=== PATIENT | female | born 1985 | race Caucasian/White ===

== ENCOUNTER → 2016-12-14 | Outpatient (REF) | payer OTHER ==
[~2016-12-14] MED LIST: MOTR200T44 PO; PERCOCET PO
[2016-12-14 12:47] LABS: ALBUMIN 3.7 GM/DL (3.2-5.2); ALBUMIN/GLOBULIN RATIO 1.06 (1.00-1.93); ALKALINE PHOSPHATASE 71 U/L (45-117); ALT/SGPT 16 U/L (12-78); ANION GAP 10 MEQ/L (8-16); AST/SGOT 8 U/L (15-37); BILIRUBIN,TOTAL 0.4 MG/DL (0.2-1.0); BLOOD UREA NITROGEN 10 MG/DL (7-18); CALCIUM LEVEL 8.9 MG/DL (8.5-10.1); CARBON DIOXIDE LEVEL 24 MEQ/L (21-32); CHLORIDE LEVEL 106 MEQ/L (98-107); CHOLESTEROL LEVEL 195 MG/DL (<200); CREATININE FOR GFR 0.78 MG/DL (0.55-1.02); GLOMERULAR FILTRATION RATE > 60.0 (>60); GLUCOSE, FASTING 122 MG/DL (70-105); POTASSIUM SERUM 4.2 MEQ/L (3.5-5.1); SODIUM LEVEL 140 MEQ/L (136-145); TOTAL PROTEIN 7.2 GM/DL (6.4-8.2); TRIGLYCERIDES LEVEL 136 MG/DL (<150)
== END ==
LOC: M LABDRWAD 12:12
PROVIDERS: ATTEND Nurse Practitioner Family
DX: E78.4 Other hyperlipidemia (principal); E55.9 Vitamin D deficiency, unspecified; E11.9 Type 2 diabetes mellitus without complications

== ENCOUNTER → 2018-03-27 | Outpatient (REF) | payer OTHER ==
[2018-03-27 13:13] LABS: BASO % 0.6 % (0.0-1.0); EOS # 0.1 10^3/uL (0.0-0.50); EOS % 1.1 % (0.0-3.0); HEMATOCRIT 38.7 % (36.0-47.0); HEMOGLOBIN 12.5 g/dl (12.0-15.5); IMMATURE GRANULOCYTE % 0.3 % (0-3.0); LYMPH # 1.7 10^3/uL (1.5-4.5); LYMPH % 27.9 % (24.0-44.0); MEAN CORPUSCULAR HEMOGLOBIN 28.7 pg (27.0-33.0); MEAN CORPUSCULAR HGB CONC 32.3 g/dl (32.0-36.5); MONO # 0.6 10^3/uL (0.0-0.8); NEUTROPHILS # 3.8 10^3/uL (1.8-7.7); NEUTROPHILS % 61.1 % (36.0-66.0); PLATELET COUNT, AUTOMATED 351 10^3/uL (150-450); RED BLOOD COUNT 4.35 10^6/uL (4.00-5.40); RED CELL DISTRIBUTION WIDTH 12.7 % (11.5-14.5); WHITE BLOOD COUNT 6.2 10^3/uL (4.0-10.0)
[2018-03-27 13:33] LABS: ALBUMIN 3.9 GM/DL (3.2-5.2); ALBUMIN/GLOBULIN RATIO 1.18 (1.00-1.93); ALKALINE PHOSPHATASE 74 U/L (45-117); ALT/SGPT 15 U/L (12-78); ANION GAP 9 MEQ/L (8-16); AST/SGOT 11 U/L (7-37); BILIRUBIN,TOTAL 0.3 MG/DL (0.2-1.0); BLOOD UREA NITROGEN 10 MG/DL (7-18); CALCIUM LEVEL 8.9 MG/DL (8.5-10.1); CARBON DIOXIDE LEVEL 23 MEQ/L (21-32); CHLORIDE LEVEL 107 MEQ/L (98-107); CHOLESTEROL LEVEL 202 MG/DL (<200); CREATININE FOR GFR 0.69 MG/DL (0.55-1.30); GLOMERULAR FILTRATION RATE > 60.0 (>60); GLUCOSE, FASTING 125 MG/DL (70-100); HDL CHOLESTEROL 54 MG/DL (>40); NON-HDL-C 148 MG/DL; POTASSIUM SERUM 4.5 MEQ/L (3.5-5.1); SODIUM LEVEL 139 MEQ/L (136-145); TOTAL PROTEIN 7.2 GM/DL (6.4-8.2); TRIGLYCERIDES LEVEL 165 MG/DL (<150)
[2018-03-27 13:35] LABS: TOTAL 25(OH) VITAMIN D 18.4 NG/ML (30.0-100.0)
[2018-03-27 14:05] LABS: ESTIMATED AVERAGE GLUCOSE 140 MG/DL (60-110); HEMOGLOBIN A1c 6.5 %
== END ==
LOC: M LABDRWAD 12:46
DX: E55.9 Vitamin D deficiency, unspecified (principal); E11.9 Type 2 diabetes mellitus without complications; E78.4 Other hyperlipidemia
CPT/HCPCS: 80053

== ENCOUNTER 2018-10-25 06:10 | Day surgery (SDC) | payer OTHER ==
[~2018-10-25] VITALS: Ht 165.1 cm; Wt 119.3 kg
[~2018-10-25 06:10] MED LIST changes: +LR 1,000 ML IV ONE; +METF500T13 PO; +MICR1TAB16 PO; +PAXI20TA29 PO; +VITA100067 PO
[2018-10-25 06:31] LABS: HEMATOCRIT 41.8 % (36.0-47.0); HEMOGLOBIN 13.5 g/dl (12.0-15.5); MEAN CORPUSCULAR HEMOGLOBIN 28.5 pg (27.0-33.0); MEAN CORPUSCULAR HGB CONC 32.3 g/dl (32.0-36.5); MEAN CORPUSCULAR VOLUME 88.4 fl (80.0-96.0); PLATELET COUNT, AUTOMATED 331 10^3/uL (150-450); RED BLOOD COUNT 4.73 10^6/uL (4.00-5.40)
[2018-10-25 06:49] LABS: HCG, SERUM QUALITATIVE NEGATIVE (NEGATIVE)
[2018-10-25] MEDS ORDERED: BUPIVACAINE HCL 0.25% 30 ML VIAL As Ordered ONE (07:14)
[2018-10-25] MEDS ORDERED: ROCURONIUM BROMIDE 50 MG/5 ML VIAL As Ordered ONE (07:21)
[2018-10-25] MEDS ORDERED: dexameTHASONE 4 MG/ML 1ML VIAL (J1100) As Ordered ONE (07:21)
[2018-10-25] MEDS ORDERED: PROPOFOL 200 MG/20 ML VIAL As Ordered ONE (07:21)
[2018-10-25] MEDS ORDERED: KETOROLAC 60 MG/2 ML VIAL (J1885) As Ordered ONE (07:21)
[2018-10-25] MEDS ORDERED: fentaNYL 250 MCG/5 ML INJECTION (J3010) As Ordered ONE (07:21)
[2018-10-25] MEDS ORDERED: ONDANSETRON 4MG/2ML VIAL (J2405) As Ordered ONE (07:21)
[2018-10-25] MEDS ORDERED: LIDOCAINE 2% INJ 100 MG/5 ML SDV (FOR ANES.) As Ordered ONE (07:21)
[2018-10-25] MEDS ORDERED: MIDAZOLAM INJ 2 MG/2 ML VIAL (J2250) As Ordered ONE (07:21)
[2018-10-25] MEDS ORDERED: NEOSTIGMINE 10 MG/10 ML VIAL (J2710) As Ordered ONE (08:11)
[2018-10-25] MEDS ORDERED: HYDROmorphone HCL 2 MG/ML 1ML VIAL (J1170) As Ordered ONE (08:11)
[2018-10-25] MEDS ORDERED: GLYCOPYRROLATE INJ 0.2 MG/ML 2 ML VIAL As Ordered ONE (08:11)
[2018-10-25] MEDS ORDERED: ONDANSETRON 4MG/2ML VIAL (J2405) IV PRN (09:00)
[2018-10-25] MEDS ORDERED: fentaNYL 100 MCG/2 ML INJECTION (J3010) IV PRN (09:00)
[2018-10-25] MEDS ORDERED: MEPERIDINE INJ 25 MG/ML VIAL (J2175) IV PRN (09:00)
[2018-10-25] MEDS ORDERED: LR 1,000 ML IV SCH (09:00)
[2018-10-25] MEDS ORDERED: PERCOCET 5MG/325MG TAB PO PRN ×2 (09:00)
[2018-10-25] MEDS ORDERED: METOCLOPRAMIDE INJ 10MG/2ML VIAL (J2765) IV PRN (09:00)
--- NOTE | 2018-10-25 10:34 | RO ---
DATE OF PROCEDURE: 10/25/2018 PREOPERATIVE DIAGNOSIS: Satisfied parity with undesired fertility. POSTOPERATIVE DIAGNOSIS: Satisfied parity with undesired fertility. PROCEDURE PERFORMED: Diagnostic operative laparoscopy with bilateral salpingectomy. SURGEON: Viola Jackson MD FOOD SERVICE TEAM MEMBER: None. ANESTHESIA: General endotracheal anesthesia. Estimated blood loss was 5 mL. Intravenous fluids was 800 mL. Urine output was 300 mL. PREOPERATIVE ANTIBIOTICS: None. SPECIMENS: Bilateral fallopian tubes. OPERATIVE FINDINGS: Patient with normal appearing pelvic anatomy to include uterus, anterior and posterior cul-de-sac, bilateral adnexa. Liver edge was visualized and appeared to be normal. Normal appearing appendix. DESCRIPTION OF OPERATION: After informed consent was obtained and written content was reviewed, the patient was brought to the operating room where general endotracheal anesthesia was obtained. She was then placed in lithotomy position, was prepped and draped in normal sterile fashion. A time-out in operating room was then performed identifying the patient, procedure to be performed, as well as drug allergies. A bivalve speculum was then placed revealing the cervix. The anterior lip of the cervix was grasped with a single-tooth tenaculum. The uterus was then sounded to 11 cm. A Hulka tenaculum was then advanced through the cervical os for means to manipulate the uterus. The single-tooth tenaculum as well as the speculum was then removed. A Kolb catheter was placed and set to gravity. Gloves were changed. Attention was turned to the patient's abdomen, where 0.25% Marcaine was infused in umbilical region. This area was incised and a 5 mm trocar and sleeve was advanced through this incision. The laparoscope was then replaced revealing intra-abdominal placement. A pneumoperitoneum was then obtained with CO2 gas. The abdomen was then surveyed with above-noted finding. Two additional accessory ports were placed. First was 2 cm above the pubis symphysis in a midline. This area was infused. An incision was made in this area and a 5 mm trocar and sleeve was advanced through this incision under direct visualization. In similar fashion, the second accessory port was placed in the left side of the patient's umbilicus. Area was infused. Incision was made and a 5 mm trocar and sleeve was advanced through this incision under direct visualization. Next, bilateral salpingectomies were then performed. The right fallopian tube was placed on traction. Using a scalpel device, it was transected at the level of the uterus. Further dissection along the mesosalpinx was performed and the specimen was then disconnected and removed from the patient's abdomen. In a similar fashion, the left fallopian tube was placed on traction. It was transected at the level of the uterus. It was further dissected along the mesosalpinx removing the specimen from the adnexa and this specimen was also removed from the patient's abdomen through the port site. Surgical sites were inspected and noted to be hemostatic. Pneumoperitoneum was then released. Instruments removed from the patient's abdomen as well as trocars . Ports sites were then closed with #4-0 Monocryl and were dressed with Dermabond. Trocar sites were closed with #4-0 Monocryl, was dressed Dermabond. The Hulka tenaculum as well as the Kolb catheter was removed. Tenaculum site was noted to be hemostatic. The patient was then taken out of lithotomy position, was awakened from general anesthesia and taken to recovery in stable condition. Counts were correct.
[2018-10-25 11:10] VITALS: BP 126/79
[2018-10-25] MEDS ORDERED: KETOROLAC 30 MG/ML VIAL (J1885) IV SCH (14:00)
== END 2018-10-25 11:15 | disposition home or self-care (01) ==
LOC: M SDC 06:10
PROVIDERS: ATTEND Obstetrics & Gynecology
DX: Z30.2 Encounter for sterilization (principal); E11.9 Type 2 diabetes mellitus without complications; Z79.84 Long term (current) use of oral hypoglycemic drugs; G47.30 Sleep apnea, unspecified
CPT/HCPCS: 36415; 58661; 84703; 85027; 86850; 86900; 86901; 88302; J1100; J1170; J1885; J2175; J2250; J2405; J2710; J3010

== ENCOUNTER → 2019-06-16 | Outpatient (REF) | payer OTHER ==
[~2019-06-16] MED LIST changes: -LR 1,000 ML IV ONE
[2019-06-16 13:30] LABS: ALBUMIN 3.7 GM/DL (3.2-5.2); ALT/SGPT 21 U/L (12-78); BILIRUBIN,TOTAL 0.2 MG/DL (0.2-1.0); BLOOD UREA NITROGEN 11 MG/DL (7-18); CALCIUM LEVEL 8.7 MG/DL (8.5-10.1); CARBON DIOXIDE LEVEL 26 MEQ/L (21-32); CHLORIDE LEVEL 109 MEQ/L (98-107); CHOLESTEROL LEVEL 188 MG/DL (<200); CHOLESTEROL RISK RATIO 3.081 (<5); CREATININE FOR GFR 0.76 MG/DL (0.55-1.30); FREE T4 0.95 NG/DL (0.76-1.46); GLOMERULAR FILTRATION RATE > 60.0 (>60); GLUCOSE, FASTING 97 MG/DL (70-100); HDL CHOLESTEROL 61 MG/DL (>40); LDL CHOLESTEROL 108 MG/DL (<100); NON-HDL-C 127 MG/DL; POTASSIUM SERUM 4.3 MEQ/L (3.5-5.1); SODIUM LEVEL 142 MEQ/L (136-145); TRIGLYCERIDES LEVEL 94 MG/DL (<150)
[2019-06-16 13:31] LABS: BASO % 0.5 % (0.0-1.0); EOS # 0.1 10^3/uL (0.0-0.50); HEMATOCRIT 40.7 % (36.0-47.0); HEMOGLOBIN 12.7 g/dl (12.0-15.5); LYMPH # 1.9 10^3/uL (1.5-4.5); LYMPH % 31.8 % (24.0-44.0); MEAN CORPUSCULAR HEMOGLOBIN 28.9 pg (27.0-33.0); MEAN CORPUSCULAR HGB CONC 31.2 g/dl (32.0-36.5); MEAN CORPUSCULAR VOLUME 92.5 fl (80.0-96.0); MONO # 0.6 10^3/uL (0.0-0.8); MONO % 9.7 % (0.0-5.0); NEUTROPHILS # 3.3 10^3/uL (1.8-7.7); NEUTROPHILS % 56.8 % (36.0-66.0); PLATELET COUNT, AUTOMATED 297 10^3/uL (150-450); WHITE BLOOD COUNT 5.9 10^3/uL (4.0-10.0)
[2019-06-16 14:04] LABS: HEMOGLOBIN A1c 6.5 %
[2019-06-16 14:08] LABS: MALB URINE SIEMENS 22.4 MG/L; MAU/CREAT RATIO 7.3 MCG/MG (0.0-30.0)
== END ==
LOC: M LABDRWAD 12:15 → M LABDRAW1 12:15
PROVIDERS: ATTEND Physician Assistant
DX: Z13.220 Encounter for screening for lipoid disorders (principal); E11.9 Type 2 diabetes mellitus without complications; F41.1 Generalized anxiety disorder

== ENCOUNTER 2020-01-20 06:12 | Day surgery (SDC) | payer OTHER ==
[~2020-01-20] VITALS: Ht 165.1 cm; Wt 111.6 kg
[~2020-01-20 06:12] MED LIST changes: +FLUO20CA22 PO; +VICT18IN SC
[2020-01-20] MEDS ORDERED: CLAR10CA3 PO (06:53)
[2020-01-20] MEDS ORDERED: ceFAZolin SOD 1 GM in D5W MINI-BAG PLUS 50 ML IV ONE (07:00)
[2020-01-20] MEDS ORDERED: LR 1,000 ML IV ONE (07:00)
[2020-01-20] MEDS ORDERED: LIDOCAINE 2% INJ 100 MG/5 ML SDV (FOR ANES.) As Ordered ONE (07:11)
[2020-01-20] MEDS ORDERED: ROCURONIUM BROMIDE 50 MG/5 ML VIAL As Ordered ONE (07:11)
[2020-01-20] MEDS ORDERED: dexameTHASONE 4 MG/ML 1ML VIAL (J1100) As Ordered ONE (07:11)
[2020-01-20] MEDS ORDERED: ONDANSETRON 4MG/2ML VIAL (J2405) As Ordered ONE (07:11)
[2020-01-20] MEDS ORDERED: propofoL 200 MG/20 ML VIAL As Ordered ONE ×2 (07:11→08:15)
[2020-01-20] MEDS ORDERED: MIDAZOLAM INJ 2 MG/2 ML VIAL (J2250) As Ordered ONE (07:12)
[2020-01-20] MEDS ORDERED: fentaNYL 100 MCG/2 ML INJECTION (J3010) As Ordered ONE ×2 (07:12→07:47)
[2020-01-20] MEDS ORDERED: BUPIVACAINE/EPIN 0.25% 30 ML VIAL As Ordered ONE (07:13)
[2020-01-20] MEDS ORDERED: SUGAMMADEX SODIUM 500 MG/5 ML VIAL (BRIDION) As Ordered ONE (07:47)
[2020-01-20] MEDS ORDERED: ESMOLOL INJ 100MG/10ML VIAL As Ordered ONE (07:50)
[2020-01-20] MEDS ORDERED: ACETAMINOPHEN 1000MG 100ML IV BTL (OFIRMEV) (J0131 PER 10MG) As Ordered ONE (07:54)
[2020-01-20] MEDS ORDERED: KETOROLAC 60 MG/2 ML VIAL (J1885) As Ordered ONE (07:55)
--- NOTE | 2020-01-20 08:49 | RO ---
DATE OF PROCEDURE: 01/20/2020 PREOPERATIVE DIAGNOSIS: History of symptomatic gallstones. POSTOPERATIVE DIAGNOSIS: History of symptomatic gallstones. PROCEDURE: Laparoscopic cholecystectomy. SURGEON: Miller Cartagena Jr., MD ANESTHESIA: General endotracheal anesthesia. ESTIMATED BLOOD LOSS (EBL): Minimal. FLUIDS: Crystalloid. BRIEF PROCEDURE SUMMARY: The patient was brought to the operating room and was given general anesthesia. After adequate anesthesia and preoperative antibiotics were given, the patient was prepped and draped in the usual sterile fashion. Next, a supraumbilical incision was made with skin knife. Blunt dissection was carried down to fascia. Fascia was entered with a Veress needle, insufflated to 15 mm of pressure, and a dilating 10 mm trocar was placed at the umbilicus under direct visualization, and an epigastric and two lateral trocars were placed, and the gallbladder was grasped, retracted superiorly, and the neck of the gallbladder was cleared of adhesions with hook cautery. The peritoneum was taken down with hook cautery, and the neck of the gallbladder was nicely seen at this time. The cystic artery was seen, followed up onto the gallbladder itself, and then a window behind the neck of the gallbladder was created creating a critical view of safety. The cystic artery was clipped proximally and distally and transected. Then the cystic duct was isolated further at this time and clipped proximally and distally and transected. The gallbladder was removed from the gallbladder bed, placed in an EndoCatch bag, and brought out through the umbilicus. The right upper quadrant was copiously irrigated until clear. All trocars were removed under direct visualization. 0 Vicryl was used to close the fascia at the umbilicus, and all incisions were closed with 4-0 Vicryl. Steri-Strips and a dry sterile dressing were applied. The patient was awakened, extubated, brought to recovery room awake, alert, and hemodynamic stable. Sponge and needle counts are correct times two.
[2020-01-20] MEDS ORDERED: ONDANSETRON 4MG/2ML VIAL (J2405) IV PRN ×2 (09:00)
[2020-01-20] MEDS ORDERED: LR 1,000 ML IV SCH ×2 (09:00)
[2020-01-20] MEDS ORDERED: PERCOCET 5MG/325MG TAB PO PRN ×2 (09:00)
[2020-01-20] MEDS ORDERED: fentaNYL 100 MCG/2 ML INJECTION (J3010) IV PRN (09:00)
[2020-01-20 11:00] VITALS: BP 122/79
== END 2020-01-20 11:05 | disposition home or self-care (01) ==
LOC: M SDC 06:12
PROVIDERS: ATTEND Surgery
DX: K81.1 Chronic cholecystitis (principal); G47.30 Sleep apnea, unspecified; E11.9 Type 2 diabetes mellitus without complications; F41.9 Anxiety disorder, unspecified; Z79.84 Long term (current) use of oral hypoglycemic drugs
CPT/HCPCS: 47562; 88304; J0131; J0690; J1100; J1885; J2250; J2405; J3010

== ENCOUNTER → 2020-11-29 | Outpatient (CLI) | payer OTHER ==
[~2020-11-29] MED LIST changes: +CLAR10CA3 PO
[2020-11-29 10:51] LABS: HEMOGLOBIN A1c 6.1 %
[2020-11-29 11:14] LABS: ALBUMIN 3.7 GM/DL (3.2-5.2); ALT/SGPT 21 U/L (12-78); BILIRUBIN,TOTAL 0.2 MG/DL (0.2-1.0); BLOOD UREA NITROGEN 13 MG/DL (7-18); CARBON DIOXIDE LEVEL 24 MEQ/L (21-32); CHLORIDE LEVEL 107 MEQ/L (98-107); CREATININE FOR GFR 0.73 MG/DL (0.55-1.30); GLOMERULAR FILTRATION RATE > 60.0 (>60); GLUCOSE, FASTING 109 MG/DL (70-100); POTASSIUM SERUM 4.9 MEQ/L (3.5-5.1); SODIUM LEVEL 138 MEQ/L (136-145); TOTAL PROTEIN 7.2 GM/DL (6.4-8.2)
== END ==
LOC: M LAB 09:19
PROVIDERS: ATTEND Physician Assistant
DX: E11.9 Type 2 diabetes mellitus without complications (principal)

== ENCOUNTER → 2021-02-03 | Outpatient (CLI) | payer OTHER ==
--- NOTE | 2021-02-03 12:35 | REP ---
INDICATION: N93.9 AUB. COMPARISON: None. TECHNIQUE: Transabdominal scanning performed. The patient declined endovaginal ultrasound. FINDINGS: Uterine dimensions are 11.1 x 4.5 x 5.7 cm. Endometrial echo is 8 mm in AP dimension and centrally placed. The bladder measures 7.2 x 6.0cm. The right ovary has dimensions of 2.4 x 2.2 x 2.0 cm. The left ovary dimensions are 2.7 x 1.7 x 1.6 cm. Blood flow seen in each ovary with duplex Doppler evaluation, with no torsion. There is no adnexal mass identified. No free fluid is seen in the cul-de-sac. IMPRESSION: Negative transabdominal pelvic ultrasound. Patient declined endovaginal ultrasound. <Electronically signed by Griffin Laura > 02/03/21 [id number]
== END ==
LOC: M WHC 11:02
PROVIDERS: ATTEND Obstetrics & Gynecology
DX: N93.9 Abnormal uterine and vaginal bleeding, unspecified (principal)

== ENCOUNTER → 2021-02-03 | Outpatient (REF) | payer OTHER ==
[2021-02-03 14:45] LABS: FREE T4 0.85 NG/DL (0.76-1.46); THYROID STIMULATING HORMONE 2.63 uIU/ML (0.358-3.740)
== END ==
LOC: M PLALAB 11:22
PROVIDERS: ATTEND Obstetrics & Gynecology
DX: N93.9 Abnormal uterine and vaginal bleeding, unspecified (principal)

== ENCOUNTER → 2021-05-26 | Outpatient (REF) | payer OTHER ==
[2021-05-26 13:53] LABS: BASO % 0.5 % (0.0-1.0); EOS # 0.1 10^3/uL (0.0-0.5); EOS % 1.3 % (0.0-3.0); HEMATOCRIT 40.3 % (36.0-47.0); HEMOGLOBIN 12.3 g/dl (12.0-15.5); LYMPH # 1.9 10^3/uL (1.5-5.0); LYMPH % 34.6 % (24.0-44.0); MEAN CORPUSCULAR HEMOGLOBIN 27.7 pg (27.0-33.0); MEAN CORPUSCULAR HGB CONC 30.5 g/dl (32.0-36.5); MEAN CORPUSCULAR VOLUME 90.8 fl (80.0-96.0); MONO # 0.5 10^3/uL (0.0-0.8); MONO % 9.5 % (2.0-8.0); NEUTROPHILS % 53.7 % (36.0-66.0); PLATELET COUNT, AUTOMATED 323 10^3/uL (150-450); RED BLOOD COUNT 4.44 10^6/uL (4.00-5.40); WHITE BLOOD COUNT 5.6 10^3/uL (4.0-10.0)
[2021-05-26 14:22] LABS: ALBUMIN 3.9 GM/DL (3.2-5.2); ALT/SGPT 21 U/L (12-78); BILIRUBIN,TOTAL 0.3 MG/DL (0.2-1.0); BLOOD UREA NITROGEN 7 MG/DL (7-18); CALCIUM LEVEL 8.9 MG/DL (8.5-10.1); CARBON DIOXIDE LEVEL 27 MEQ/L (21-32); CHLORIDE LEVEL 106 MEQ/L (98-107); CREATININE FOR GFR 0.68 MG/DL (0.55-1.30); FERRITIN 12 NG/ML (8-252); GLOMERULAR FILTRATION RATE > 60.0 (>60); GLUCOSE, FASTING 99 MG/DL (70-100); IRON (FE) 41 UG/DL (50-170); PERCENT SATURATION 9.6 % (13.2-45.0); POTASSIUM SERUM 4.8 MEQ/L (3.5-5.1); SODIUM LEVEL 138 MEQ/L (136-145); TOTAL IRON BINDING CAPACITY 429 UG/DL (250-450); TOTAL PROTEIN 7.2 GM/DL (6.4-8.2)
[2021-05-26 14:28] LABS: CREATININE, URINE 79.5 MG/DL; MALB URINE SIEMENS < 5.0 MG/L; MAU/CREAT RATIO 6.2 MCG/MG (0.0-30.0)
== END ==
LOC: M LABDRWAD 12:46
PROVIDERS: ATTEND Physician Assistant
DX: N94.6 Dysmenorrhea, unspecified (principal); E11.9 Type 2 diabetes mellitus without complications

== ENCOUNTER → 2021-10-24 | Outpatient (CLI) | payer OTHER ==
[~2021-10-24] MED LIST changes: +OZEM2INJ
== END ==
LOC: M LABSMTC 10:05
PROVIDERS: ATTEND Anesthesiology
DX: Z01.818 Encounter for other preprocedural examination (principal); Z11.52 Encounter for screening for COVID-19

== ENCOUNTER → 2021-10-24 | Outpatient (CLI) | payer OTHER ==
[2021-10-24 10:31] LABS: BLOOD UREA NITROGEN 8 MG/DL (7-18); CARBON DIOXIDE LEVEL 28 MEQ/L (21-32); CHLORIDE LEVEL 107 MEQ/L (98-107); CREATININE FOR GFR 0.68 MG/DL (0.55-1.30); GLOMERULAR FILTRATION RATE > 60.0 (>60); GLUCOSE, FASTING 125 MG/DL (70-100); POTASSIUM SERUM 4.6 MEQ/L (3.5-5.1); SODIUM LEVEL 139 MEQ/L (136-145)
--- NOTE | 2021-10-26 23:51 | ECGEPIP ---
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
== END ==
LOC: M LAB 08:34
PROVIDERS: ATTEND Anesthesiology
DX: Z01.818 Encounter for other preprocedural examination (principal); E11.9 Type 2 diabetes mellitus without complications

== ENCOUNTER → 2021-10-29 | Outpatient (CLI) | payer OTHER | LOC: M LABSMTC 10:13 | PROVIDERS: ATTEND Anesthesiology | DX: Z01.818 Encounter for other preprocedural examination (principal); Z11.52 Encounter for screening for COVID-19 ==

== ENCOUNTER 2021-10-31 06:12 | Day surgery (SDC) | payer OTHER ==
[~2021-10-31] VITALS: Ht 165.1 cm; Wt 114.7 kg
[~2021-10-31 06:12] MED LIST changes: +LIDOCAINE 1% MDV 20ML VIAL SQ PRN; +LR 1,000 ML IV ONE
[2021-10-31 06:42] LABS: HEMATOCRIT 37.7 % (36.0-47.0); HEMOGLOBIN 12.2 g/dl (12.0-15.5); MEAN CORPUSCULAR HEMOGLOBIN 28.8 pg (27.0-33.0); MEAN CORPUSCULAR HGB CONC 32.4 g/dl (32.0-36.5); MEAN CORPUSCULAR VOLUME 89.1 fl (80.0-96.0); PLATELET COUNT, AUTOMATED 314 10^3/uL (150-450); RED BLOOD COUNT 4.23 10^6/uL (4.00-5.40); WHITE BLOOD COUNT 6.1 10^3/uL (4.0-10.0)
[2021-10-31] MEDS ORDERED: BUPIVACAINE HCL 0.25% 30ML VIAL As Ordered ONE (07:12)
[2021-10-31] MEDS ORDERED: ceFAZolin 2 GM/D5W 50 ML IV BAG (J0690 PER 500MG) As Ordered ONE (07:44)
--- NOTE | 2021-10-31 07:44 | ROOPDOC ---
[facility] Report Of Operation Report of Operation DATE OF PROCEDURE: 10/31/21 PREPROCEDURE DIAGNOSES: 1. Abnormal uterine bleeding. POSTPROCEDURE DIAGNOSES: 1. Abnormal uterine bleeding. PROCEDURES PERFORMED: 1. Robotic-assisted laparoscopic hysterectomy. 2. Bilateral salpingectomy. 3. Cystoscopy. SURGEON: Linden Jackson MD FIELD ASSISTANT: SIGRID Mata ANESTHESIA: General endotracheal anesthesia. ESTIMATED BLOOD LOSS: 100 mL. INTRAVENOUS FLUIDS: 1000 mL lactated Ringer solution. URINE OUTPUT: 100 mL. PREPROCEDURE ANTIBIOTICS: 2g Ancef OPERATIVE FINDINGS: The patient with normal-appearing bilateral adnexa and uterus CYSTOSCOPIC FINDING: Normal bladder mucosa, no foreign objects. Bilateral ureteral jets were observed. SPECIMEN: Uterus, cervix, bilateral fallopian tubes DESCRIPTION OF PROCEDURE: After informed consent was obtained and written consent was reviewed, the patient was brought to the operating room, where general endotracheal anesthesia was obtained. She was then placed in lithotomy position, was prepped and draped in a normal sterile fashion. A time-out in the operating room was then performed, identifying the patient, procedure to be performed, as well as drug allergies. A speculum was then placed, revealing the cervix. The anterior and posterior aspects of the cervix were stitched with a 0 Vicryl. The uterus was then sounded to 11 cm. A large Meridiumare uterine manipulator was then advanced through the cervical os for means to manipulate the uterus. The cervical cap was applied over the cervix, as well as the vaginal sleeve applied into the vagina. The speculum was removed from the patients vagina. A Kolb catheter was then placed and set to gravity. Gloves were changed, and attention was turned to the patients abdomen, where a Veress needle was placed through the umbilicus. A pneumoperitoneum was then obtained with CO2 gas. The supraumbilical area was infused with 0.25% Marcaine. An incision was made in this area, and a 8 mm trocar and sleeve was advanced through this incision. The laparoscope was then replaced, revealing intra-abdominal placement. Three additional port sites were placed, two to the left side of the patient's abdomen and one to the right. These areas was infused with 0.25% Marcaine. Each one of these areas, incisions were made, and 8 mm trocars and sleeves advanced through each one of these incisions under direct visualization. Next, the da Isaac was then docked, utilizing a camera arm and two operative arms. The patient's abdomen was then surveyed with the above-noted finding. Next, the uteroovarian ligaments bilateral were cauterized and ligated with good hemostasis noted. The round ligaments bilaterally were cauterized and ligated with good hemostasis noted. The anterior and posterior aspects of broad ligaments were . The anterior leaf of the broad ligament was cauterized and ligated and dissected along the bladder, creating a bladder flap. The remainder of the broad and cardinal ligaments were then cauterized and ligated with good hemostasis noted. The uterine arteries were skeletonized bilaterally and were cauterized and transected with good hemostasis noted. Anterior and posterior colpotomies were made using monopolar scissors. The uterus was then brought out through the vaginal incision. The surgical sites were inspected and noted to be hemostatic. The vaginal cuff was then closed using 2-0 V-Loc system in a running fashion. Melani was then applied over the surgical field. The pneumoperitoneum was then released. Next, the cystoscopy was then performed. Utilizing a 70-degree cystoscope, it was advanced transurethrally through the bladder. The bladder was surveyed, showing normal bladder mucosa, no foreign bodies. The bilateral ureteral jets were observed. The cystoscope was then removed. The bladder was then drained. Gloves were changed. Attention was then turned to the patients abdomen, where all four port sites were closed with 4-0 Monocryl and dressed with Dermabond. The patient was then taken out of lithotomy position and was awakened from general anesthesia and taken to recovery in stable condition. Counts were correct. Angelita Rodriguez, my surgical instrument mechanic, played a central role in the operation. She assisted with port placement, tissue retraction and identification, as well as wound closure. LINDEN JACKSON MD. Oct 31, 2021 07:44
[2021-10-31] MEDS ORDERED: dexameTHASONE 4 MG/ML 1ML VIAL (J1100 PER 1MG) As Ordered ONE (07:54)
[2021-10-31] MEDS ORDERED: propofoL 200 MG/20 ML VIAL As Ordered ONE (07:54)
[2021-10-31] MEDS ORDERED: MIDAZOLAM INJ 2MG/2ML VIAL (J2250 PER 1MG) As Ordered ONE (07:54)
[2021-10-31] MEDS ORDERED: LIDOCAINE 2% 100MG/5ML SDV (FOR ANES.) As Ordered ONE (07:54)
[2021-10-31] MEDS ORDERED: SUGAMMADEX SODIUM 500 MG/5 ML VIAL (BRIDION) As Ordered ONE (07:54)
[2021-10-31] MEDS ORDERED: DESFLURANE 240 ML INHALANT As Ordered ONE (07:54)
[2021-10-31] MEDS ORDERED: ROCURONIUM BROMIDE 50 MG/5 ML VIAL As Ordered ONE (07:54)
[2021-10-31] MEDS ORDERED: ONDANSETRON 4MG/2ML VIAL As Ordered ONE ×2 (07:54→07:58)
[2021-10-31] MEDS ORDERED: KETOROLAC 60MG 2ML VIAL As Ordered ONE (07:54)
[2021-10-31] MEDS ORDERED: fentaNYL 250 MCG/5 ML INJECTION (J3010) As Ordered ONE (07:54)
[2021-10-31] MEDS ORDERED: HYDROmorphone HCL 2 MG/ML 1ML VIAL As Ordered ONE (07:54)
[2021-10-31] MEDS ORDERED: METOCLOPRAMIDE INJ 10MG/2ML VIAL (J2765 PER 1) As Ordered ONE (07:54)
[2021-10-31] MEDS ORDERED: ACETAMINOPHEN 1000MG 100ML IV BTL (OFIRMEV) (J0131 PER 10MG) As Ordered ONE (07:55)
[2021-10-31] MEDS ORDERED: fentaNYL 100 MCG/2 ML INJECTION (J3010) IV PRN (09:50)
[2021-10-31] MEDS ORDERED: LR 1,000 ML IV SCH (09:50)
[2021-10-31] MEDS ORDERED: ONDANSETRON 4MG/2ML VIAL IV PRN (09:50)
[2021-10-31] MEDS ORDERED: oxyCODONE 5MG TAB PO PRN (09:50)
[2021-10-31] MEDS ORDERED: PERCOCET 5MG/325MG TAB PO PRN (09:55)
[2021-10-31 13:30] VITALS: BP 128/76
[2021-10-31] MEDS ORDERED: KETOROLAC 30 MG/ML 1ML VIAL IV SCH (15:00)
== END 2021-10-31 14:30 | disposition home or self-care (01) ==
LOC: M SDC 06:12
PROVIDERS: ATTEND Obstetrics & Gynecology
DX: N93.9 Abnormal uterine and vaginal bleeding, unspecified (principal); E11.9 Type 2 diabetes mellitus without complications; L40.9 Psoriasis, unspecified; F41.9 Anxiety disorder, unspecified; Z79.84 Long term (current) use of oral hypoglycemic drugs; Z79.899 Other long term (current) drug therapy
CPT/HCPCS: 36415; 58570; 81025; 85027; 86850; 86900; 86901; 88307; J0131; J0690; J1100; J1170; J1885; J2250; J2405; J2765; J3010; S2900

== ENCOUNTER → 2021-11-18 | Outpatient (CLI) | payer OTHER ==
[~2021-11-18] MED LIST changes: -LIDOCAINE 1% MDV 20ML VIAL SQ PRN; -LR 1,000 ML IV ONE
== END ==
LOC: M WHC 15:44
PROVIDERS: ATTEND Specialist
DX: N89.8 Other specified noninflammatory disorders of vagina (principal); N39.0 Urinary tract infection, site not specified

== ENCOUNTER → 2021-12-08 | Outpatient (CLI) | payer OTHER ==
[2021-12-08 10:58] LABS: BASO % 0.7 % (0.0-1.0); EOS # 0.2 10^3/uL (0.0-0.5); HEMATOCRIT 37.8 % (36.0-47.0); HEMOGLOBIN 11.4 g/dl (12.0-15.5); LYMPH # 1.9 10^3/uL (1.5-5.0); LYMPH % 34.3 % (24.0-44.0); MEAN CORPUSCULAR HEMOGLOBIN 26.4 pg (27.0-33.0); MEAN CORPUSCULAR HGB CONC 30.2 g/dl (32.0-36.5); MEAN CORPUSCULAR VOLUME 87.5 fl (80.0-96.0); MONO # 0.5 10^3/uL (0.0-0.8); MONO % 8.7 % (2.0-8.0); NEUTROPHILS # 2.9 10^3/uL (1.5-8.5); NEUTROPHILS % 53.1 % (36.0-66.0); PLATELET COUNT, AUTOMATED 444 10^3/uL (150-450); RED BLOOD COUNT 4.32 10^6/uL (4.00-5.40); WHITE BLOOD COUNT 5.4 10^3/uL (4.0-10.0)
[2021-12-08 13:20] LABS: BLOOD UREA NITROGEN 12 MG/DL (7-18); CALCIUM LEVEL 8.9 MG/DL (8.5-10.1); CHLORIDE LEVEL 106 MEQ/L (98-107); CREATININE FOR GFR 0.78 MG/DL (0.55-1.30); GLOMERULAR FILTRATION RATE > 60.0 (>60); GLUCOSE, FASTING 117 MG/DL (70-100); POTASSIUM SERUM 4.8 MEQ/L (3.5-5.1); SODIUM LEVEL 140 MEQ/L (136-145)
[2021-12-08 13:21] LABS: ALBUMIN 3.7 GM/DL (3.2-5.2); ALT/SGPT 15 U/L (12-78); BILIRUBIN,TOTAL 0.3 MG/DL (0.2-1.0); FERRITIN 50 NG/ML (8-252); IRON (FE) 54 UG/DL (50-170); TOTAL IRON BINDING CAPACITY 361 UG/DL (250-450); TOTAL PROTEIN 7.3 GM/DL (6.4-8.2)
[2021-12-08 13:29] LABS: CARBON DIOXIDE LEVEL 25 MEQ/L (21-32)
[2021-12-08 13:55] LABS: HEMOGLOBIN A1c 5.9 %
[2021-12-09 10:33] LABS: TOTAL 25(OH) VITAMIN D 24.4 NG/ML (30.0-100.0)
== END ==
LOC: M PLALAB 08:08
PROVIDERS: ATTEND Family Medicine
DX: E11.9 Type 2 diabetes mellitus without complications (principal); R53.83 Other fatigue

== ENCOUNTER → 2022-03-06 | Outpatient (CLI) | payer OTHER ==
[2022-03-06 13:21] LABS: BASO % 0.4 % (0.0-1.0); EOS # 0.1 10^3/uL (0.0-0.5); EOS % 2.2 % (0.0-3.0); HEMATOCRIT 38.8 % (36.0-47.0); LYMPH # 1.7 10^3/uL (1.5-5.0); LYMPH % 35.9 % (24.0-44.0); MEAN CORPUSCULAR HEMOGLOBIN 26.8 pg (27.0-33.0); MEAN CORPUSCULAR HGB CONC 30.9 g/dl (32.0-36.5); MEAN CORPUSCULAR VOLUME 86.6 fl (80.0-96.0); MONO # 0.5 10^3/uL (0.0-0.8); MONO % 10.4 % (2.0-8.0); NEUTROPHILS # 2.3 10^3/uL (1.5-8.5); NEUTROPHILS % 50.9 % (36.0-66.0); PLATELET COUNT, AUTOMATED 308 10^3/uL (150-450); RED BLOOD COUNT 4.48 10^6/uL (4.00-5.40); WHITE BLOOD COUNT 4.6 10^3/uL (4.0-10.0)
[2022-03-06 13:55] LABS: ALBUMIN 3.6 GM/DL (3.2-5.2); ALT/SGPT 22 U/L (12-78); BILIRUBIN,TOTAL 0.3 MG/DL (0.2-1.0); BLOOD UREA NITROGEN 13 MG/DL (7-18); CALCIUM LEVEL 8.8 MG/DL (8.5-10.1); CARBON DIOXIDE LEVEL 27 MEQ/L (21-32); CHLORIDE LEVEL 106 MEQ/L (98-107); CREATININE FOR GFR 0.72 MG/DL (0.55-1.30); GLOMERULAR FILTRATION RATE > 60.0 (>60); GLUCOSE, FASTING 105 MG/DL (70-100); POTASSIUM SERUM 4.3 MEQ/L (3.5-5.1); SODIUM LEVEL 138 MEQ/L (136-145); TOTAL PROTEIN 6.7 GM/DL (6.4-8.2)
[2022-03-06 14:43] LABS: HEMOGLOBIN A1c 5.9 %
== END ==
LOC: M ADAMS 08:37
PROVIDERS: ATTEND Physician Assistant
DX: E11.9 Type 2 diabetes mellitus without complications (principal)